=== PATIENT | male | born 1940 | race Caucasian/White ===

== ENCOUNTER 2016-08-10 08:00 | Inpatient (IN) | payer OTHER ==
[~2016-08-10] VITALS: Ht 177.8 cm; Wt 81.6 kg
--- NOTE | ~2016-08-10 | EKG ---
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 : 1940 Requested By: Hemanth Olivera Order Number: [id number] MD: Ras Sanchez Measurements Intervals [place] Rate: 148 P: MN: QRS: 64 QRSD: 86 T: -59 QT: 284 QTc: 446 Interpretive Statements Atrial fibrillation with rapid V-rate Nonspecific T abnormalities, diffuse leads Compared to ECG 08/11/2016 16:46:12 atrial fibrillation has replaced sinus rhythm Electronically Signed On 08-14-2016 8:01:24 CDT by Ras Sanchez [email or web address] <ELECTRONICALLY SIGNED> By: Ras Sanchez MD, [facility] 08/14/16 0801 0242 1 Ras Sanchez MD, [facility] /EPI
--- NOTE | ~2016-08-10 | EKG ---
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 : 1940 Requested By: Silver Cheney Order Number: [id number] MD: Ras Sanchez Measurements Intervals [place] Rate: 77 P: 75 [place]: 168 QRS: 51 QRSD: 116 T: 70 QT: 413 QTc: 468 Interpretive Statements Sinus rhythm Nonspecific intraventricular conduction delay Diffuse ST elevation, consider pericarditis Compared to ECG 08/14/2016 02:42:45 Sinus rhythm is now present minimal diffuse ST elevation is slightly more prominent Electronically Signed On 08-16-2016 13:56:46 CDT by Ras Sanchez [email or web address] <ELECTRONICALLY SIGNED> By: Ras Sanchez MD, [facility] 08/16/16 1356 0721 0721 Ras Sanchez MD, [facility] /EPI
--- NOTE | ~2016-08-10 | EKG ---
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
--- NOTE | ~2016-08-10 | O ---
[facility] [place] [address] OPERATIVE REPORT Name: QUINNMAE Dani Room #: 207-P [facility] IN M.R.#: [id number] Admission: 08/10/16 Attend Phys: Babak Golden MD Discharge: Date of : 44 Report #: [id number] THIS REPORT FOR: //name// CC: [facility] physician/PCP Saul Golden DATE OF SERVICE: 08/11/2016 PREOPERATIVE DIAGNOSIS: Coronary artery disease. POSTOPERATIVE DIAGNOSIS: Coronary artery disease. OPERATION: Coronary artery bypass x 4 including left internal mammary artery to left anterior descending artery, saphenous vein to ramus and marginal arteries and saphenous vein to posterior descending branch of the right coronary and endoscopic harvest, left greater saphenous vein. SURGEON: Saul Linares M.D. CERTIFIED ADAPTIVE PHYSICAL EDUCATOR: Shravan. ANESTHESIA: General. INDICATIONS: The patient is a 76-year-old seen for Dr. Olivera. The patient presents with unstable angina. Catheterization demonstrates 80-90% LAD and circumflex stenoses and total occlusion of the right coronary. The patient has a history of stent placement in the circumflex marginal in the past. The patient has good ventricular function. He is a longtime smoker. FINDINGS AND TECHNIQUE: After general anesthesia was established, saphenous vein was harvested using an endoscopic approach and prepared for use as a conduit. Exposure was obtained through median sternotomy. Left internal mammary artery was harvested. Pericardial well was made. Cannulation sutures were placed in the ascending aorta. Heparin was given. Aorta was cannulated. Right atrium was cannulated. Cardioplegia needle was positioned in the aortic root. Retrograde cardioplegic catheter was placed in the coronary sinus. Cardiopulmonary bypass was established. The aorta was cross clamped, antegrade then retrograde cardioplegia were given. Ice was poured in the pericardial well. The heart was stopped. During electromechanical arrest, the distal anastomoses were performed and end-to-side anastomosis was made between vein and the large marginal artery. This was an intramyocardial vessel that measured 1.7 mm. Cold cardioplegia was [facility] [address] [place] [address] OPERATIVE REPORT Name: MAE BALL Room #: 207-P [facility] IN .R.#: [id number] Admission: 08/10/16 Attend Phys: Babak Golden MD Discharge: Date of : 44 Report #: [id number]. Same segment of vein was sewn in end-to-side fashion to the ramus intermedius. This was a 1.4 mm vessel. This did not appear to have much disease radiographically, but there was thick atheroma palpable and this was an important vessel and I thought it would be best if we bypassed it. Cold cardioplegia was given. A separate segment of vein was sewn in end-to-side fashion to the posterior descending artery. This was a 1.3 mm vessel. Cold cardioplegia was given. Left internal mammary artery was sewn in end-to-side fashion to the left anterior descending artery. Patency of this vessel was checked with the temperature technique. Cold cardioplegia was given. Two proximal anastomoses were performed. When these were complete, warm retrograde cardioplegia was given followed by warm continuous blood to the coronary sinus. When this infusion was complete, the crossclamp was removed, de-airing maneuvers were performed. The anastomoses were inspected and found to be satisfactory. As the patient warmed, nice cardiac activity resumed, chest tubes and pacing wires were placed, a marker was placed around the proximal anastomoses. When the patient was warmed, he was weaned from cardiopulmonary bypass. Venous cannula was removed. Protamine was given, the aortic cannula was removed. Flows were measured in the bypass grafts. Flow in the graft to the left side was 45 mL per minute. Flow in the graft to the right side was 38 mL per minute. A good Doppler signal was audible in the internal mammary artery. When hemostasis was satisfactory, chest was irrigated with antibiotic solution and closed in the usual fashion. The patient was taken to the Intensive Care Unit in good condition having tolerated the procedure well. All counts reported as correct. <ELECTRONICALLY SIGNED> By: Saul Linares MD 08/14/16 0946 0801 1249 Saul Linares MD /nt
--- NOTE | ~2016-08-10 | 2DMMODE ---
[facility] [place] [address] [place] [address] 2 D/M-MODE ECHOCARDIOGRAM Name: MAE BALL Room #: 217-P [facility] IN ..#: [id number] Admission: 08/10/16 Attend Phys: Babak Golden MD Discharge: Date of : 44 Date of Service: 08/10/16 1443 Report #: [id number] THIS REPORT FOR: //name// APPROVED REPORT Study performed: 08/10/2016 13:57:28 EXAM: Comprehensive 2D, Doppler, and color-flow Echocardiogram Patient Location: Room #: [facility] Blood Pressure: 156/79 mmHg HR: 50 bpm Other Information Study Quality: Adequate/Technically difficult due to lung artifact. Indications CAD. Pre-Op CABG. Hx: DE, stent, HTN 2D Dimensions RVDd: 39.03 mm LVEF(%): 53.84 (>50%) IVSd: 11.62 (7-11mm) LVOT Diam: 24.59 (18-24mm) LVDd: 55.00 mm PWd: 9.83 (7-11mm) LVDs: 39.53 (25-40mm) Aortic Root: 37.76 mm Hartley's LVEF: 53.84 % Volumes Left Atrial Volume (Systole) Single Plane 4CH: 38.54 mL Single Plane 2CH: 62.83 mL LA ESV Index: 28.00 mL/m2 Aortic Valve AoV Peak Noe.: 1.28 m/s AO Peak Gr.: 6.59 mmHg LVOT Max P.48 mmHg LVOT Max V: 0.93 m/s RUBEN Vmax: 3.45 cm2 Mitral Valve E/A Ratio: 0.8 [facility] [place] [place] [address] 2 D/M-MODE ECHOCARDIOGRAM Name: QUINNMAE Dani Room #: 217-P [facility] IN [facility]#: [id number] Admission: 08/10/16 Attend Phys: Babak Golden MD Discharge: Date of : 44 Date of Service: 08/10/16 1443 Report #: [id number] MV Decel. Time: 254.92 ms MV E Max Noe.: 0.74 m/s MV A Noe.: 0.89 m/s MV PHT: 73.93 ms IVRT: 73.82 ms Pulmonary Valve PV Peak Noe.: 0.73 m/s PV Peak Gr.: 2.14 mmHg Tricuspid Valve RVSP: 5.00 mmHg Left Ventricle The left ventricle is normal size. There is mild hypokinesis in the basal inferolateral wall. There is normal left ventricular wall thickness. Left ventricular systolic function is normal. LVEF is 50-55%. Grade I - abnormal relaxation pattern. Right Ventricle Right ventricle is not well visualized. Atria The left atrium size is normal. The right atrium size is normal. Aortic Valve The Aortic valve is sclerotic. Mild aortic regurgitation. There is no aortic valvular stenosis. Mitral Valve The mitral valve is normal in structure. Mild mitral regurgitation. No evidence of mitral valve stenosis. Tricuspid Valve The tricuspid valve is normal in structure. There is no tricuspid valve regurgitation noted. Pulmonic Valve Pulmonic valve is not well visualized. Trace pulmonic regurgitation. Great Vessels The aortic root is normal in size. Ascending aorta is not well visualized. IVC is normal in size and collapses >50% with inspiration. [facility] [place] [address] [place] [address] 2 D/M-MODE ECHOCARDIOGRAM Name: QUINNMAE Dani Room #: 217-P [facility] IN .R.#: [id number] Admission: 08/10/16 Attend Phys: Babak Golden MD Discharge: Date of : 44 Date of Service: 08/10/161442 Report #: [id number] Pericardium There is no pericardial effusion. <Conclusion> The left ventricle is normal size. Left ventricular systolic function is normal. There is mild hypokinesis in the basal inferolateral wall. The left atrium size is normal. The right atrium size is normal. The Aortic valve is sclerotic. Mild mitral regurgitation. There is no pericardial effusion. <ELECTRONICALLY SIGNED> By: Hemanth Olivera MD 08/10/16 1443 42 144 Hemanth Olivera MD /INF
--- NOTE | ~2016-08-10 | CATHLAB ---
[facility] [address] [place] [address] INVASIVE PROCEDURE REPORT Name: MAE BALL Room #: 217-P [facility] IN [facility]#: [id number] Admission: 08/10/16 Attend Phys: Babak Golden MD Discharge: Date of : 44 Date of Service: 08/10/16 1309 Report #: [id number] THIS REPORT FOR: //name// CC: [facility] physician/PCP Babak Golden DATE OF SERVICE: 08/10/2016 INDICATION: Unstable angina/acute coronary syndrome. Full risks, benefits and alternatives of cardiac catheterization were explained to the patient. All questions were answered. Informed consent was obtained. The right groin area was prepped and draped in a sterile manner. Lidocaine was given subcutaneously. A 4-Icelandic sheath was inserted into the right femoral artery via modified Seldinger technique. CORONARY ANATOMY: The left main artery is a large caliber vessel, with mild disease proximally. The LAD has a severe occlusion proximally, at least 80%. The left circumflex artery has a stent in the proximal segment with a severe restenotic lesion, at least 90% within the stent. The RCA is a dominant vessel with a 100% occlusion proximally. The distal branches are filled via collateral circulation from the left coronary artery A left ventriculogram was performed revealing normal LV systolic function, ejection fraction of 60%. The LVEDP is approximately 25 mmHg. There is no gradient across the outflow tract. IMPRESSION: 1. Severe 3-vessel disease. 2. Normal LV systolic function. 3. Recommend surgical consultation. <ELECTRONICALLY SIGNED> By: Hemanth Olivera MD 08/11/16 0807 1309 2123 Hemanth Olivera MD /nt
--- NOTE | ~2016-08-10 | EKG ---
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 : 1940 Requested By: Silver Cheney Order Number: [id number] MD: Ras Sanchez Measurements Intervals [place] Rate: 74 P: 60 [place]: 202 QRS: 68 QRSD: 98 T: 73 QT: 412 QTc: 457 Interpretive Statements Sinus rhythm Borderline T abnormalities, lateral leads Compared to ECG 08/10/2016 08:00:28 ST and T wave abnormality is less prominent Electronically Signed On 08-12-2016 7:45:08 CDT by Ras Sanchez [email or web address] <ELECTRONICALLY SIGNED> By: Ras Sanchez MD, [facility] 08/12/16 0745 45 45 Ras Sanchez MD, [facility] /EPI
--- NOTE | ~2016-08-10 | HC ---
[facility] [place] [address] CONSULTATION Name: MAE BALL Room #: 207-P [facility] IN ..#: [id number] Admission: 08/10/16 Attend Phys: Babak Golden MD Discharge: Date of : 44 Report #: [id number] THIS REPORT FOR: //name// CC: [facility] physician/PCP Babak Golden DATE OF SERVICE: 08/10/2016 We were asked to see the patient by Dr. Olivera. HISTORY OF PRESENT ILLNESS: The patient is a 76-year-old with unstable angina. The patient presented to the ER this morning with chest pain after trying to move a fence in his backyard. The patient noted sharp epigastric pain with radiation to the left arm. Pain was severe during the activity, but subsided when he stopped. The patient said his pain was similar to that encounter 15 years ago when he had coronary disease and required stent placement. The patient has not seen a physician in recent years. We note that cardiac catheterization today showed severe 3-vessel disease with at least 80% LAD, 80% circumflex (in-stent stenosis) and total right coronary occlusions. Left ventricular function is satisfactory. PAST MEDICAL HISTORY: The patient denies hypertension, diabetes mellitus. He claims to take no medications at home and denies having allergies. SOCIAL HISTORY: The patient is a dual [place] and [place] citizen. Former cigarette smoker, but continues to smoke 2 cigars a day. FAMILY HISTORY: No history of precocious coronary disease. REVIEW OF SYSTEMS: CONSTITUTIONAL: Negative for change in weight, fever, sweats. EYES: Negative for eye pain, visual change, blurry vision. HEENT: Negative for nasal congestion, sore throat. Hearing problem is representing a change. RESPIRATORY: Negative for cough, sputum production, shortness of breath. CARDIAC: As mentioned chest pain, chest pain with exertion, no palpitations. GASTROINTESTINAL: Negative for nausea, vomiting, diarrhea, GI blood loss. GENITOURINARY: Negative for urgency, frequency, hematuria. MUSCULOSKELETAL: As mentioned, left arm pain, numbness at the time of angina but no other back pain, muscle pain, joint pain. SKIN: Negative for rash or infection. NEUROLOGIC: Had some numbness in the left arm associated with the symptoms, otherwise negative for motor or sensory dysfunction. PSYCHIATRIC: Negative for anxiety and depression. ENDOCRINE: Negative for excessive sweating, , intolerance to cold or heat. [address] [address] CONSULTATION Name: QUINNMAE Dani Room #: 207-P [facility] IN ..#: [id number] Admission: 08/10/16 Attend Phys: Babak Golden MD Discharge: Date of : 44 Report #: [id number] HEMATOLOGIC: Negative for anemia, easy bruisability. PHYSICAL EXAMINATION: VITAL SIGNS: Heart rate 56, blood pressure 164/59, respiratory rate 19, O2 sat 97. HEENT: No scleral icterus, no arcus. Pupils are round, equal, reactive to light. Gaze conjugate, normocephalic. No oral or nasal injection or discharge. NECK: Left cervical bruit. No masses, no tenderness. CHEST: Clear to auscultation. No adventitious sounds. HEART: Rhythm regular, faint systolic murmur. Heart tones are distant, however. ABDOMEN: Soft, no mass, no tenderness. EXTREMITIES: No clubbing, cyanosis or edema. No obvious saphenous vein problems, 2+ dorsalis pedis and posterior tibial pulses. NEUROLOGIC: No obvious motor or sensory dysfunction. MUSCULOSKELETAL: No obvious bone or joint dyssymmetry or deformity. PSYCHIATRIC: Shows insight into problems and mood is neither artificially elevated or depressed, oriented x 3. IMPRESSION: Important 3-vessel coronary artery disease with preserved ventricular function. I have reviewed the risks and details of coronary artery bypass. Risks and details were discussed. These include but are not limited to bleeding, infection, anesthesia risks, heart problems, lung problems, stroke and options and alternatives were reviewed. The patient understands all of this and he wishes to proceed. We will try to arrange surgery for tomorrow morning. Thank you for the consult. <ELECTRONICALLY SIGNED> By: Saul Linares MD 08/14/16 0946 1400 1521 Saul Linares MD /nt
[2016-08-10 08:04] VITALS: BP 171/88
[2016-08-10 08:18] LABS: ABSOLUTE NEUTROPHILS 5.6 thou/uL (1.4-8.2); BASOPHILS 1.3 % (0.0-2.0); EOSINOPHILS 0.8 % (0.0-3.0); HEMATOCRIT 49.8 % (42.0-52.0); HEMOGLOBIN 17.3 gm/dL (14.0-18.0); LYMPHOCYTES 21.3 % (24.0-44.0); MANUAL DIFF NO; MCH 34.3 pg (26.0-34.0); MCHC 34.8 g/dL (28.0-37.0); MCV 98.5 fL (80.0-100.0); MONOCYTES 6.2 % (1.0-8.0); PLATELET COUNT 194 thou/uL (150-400); POLYS 70.4 % (36.0-66.0); RBC 5.05 mil/uL (4.50-6.00); RDW 14.8 % (10.5-14.5); WBC 7.9 thou/uL (4.0-11.0)
[2016-08-10 08:29] LABS: ANION GAP 8 mmol/L (7-16); BUN 17 mg/dL (7-18); CHLORIDE 102 mmol/L (98-107); CO2 28 mmol/L (21-32); CREATININE 1.3 mg/dL (0.7-1.3); GLUCOSE 109 mg/dL (74-106); POTASSIUM 3.7 mmol/L (3.5-5.1); SODIUM 138 mmol/L (136-145)
[2016-08-10 08:37] LABS: TROPONIN-I < 0.04 ng/mL (<0.04-0.07)
[2016-08-10 10:32] VITALS: BP 117/51
[2016-08-10 10:50] VITALS: BP 156/79
[2016-08-10 15:45] VITALS: BP 135/61
[2016-08-10 16:55] LABS: APTT 27.8 Seconds (24.5-32.8); PROTIME 10.4 Seconds (9.3-11.4)
[2016-08-10 18:02] LABS: URINE BILIRUBIN NEGATIVE (Negative); URINE BLOOD TRACE (Negative); URINE COLOR YELLOW; URINE GLUCOSE-RANDOM* NEGATIVE (Negative); URINE KETONES NEGATIVE (Negative); URINE LEUKOCYTES-REFLEX NEGATIVE (Negative); URINE PROTEIN (DIPSTICK) NEGATIVE (Negative); URINE UROBILINOGEN 0.2 E.U./dl (0.2-1.0)
[2016-08-10 22:37] VITALS: BP 149/73
[2016-08-10 22:38] VITALS: BP 136/50
[2016-08-11] VITALS (12 sets, daily range): BP systolic 88–159; BP diastolic 50–66
[2016-08-11 03:15] LABS: HEMATOCRIT 45.4 % (42.0-52.0); HEMOGLOBIN 15.9 gm/dL (14.0-18.0); MCV 96.9 fL (80.0-100.0); RBC 4.68 mil/uL (4.50-6.00); RDW 14.5 % (10.5-14.5); WBC 6.6 thou/uL (4.0-11.0)
[2016-08-11 03:35] LABS: CHOLESTEROL 279 mg/dL (<200); HDL CHOLESTEROL 30 mg/dL (>40); LDL CHOLESTEROL 223 mg/dL (<100); TC:HDL 9.3 Ratio (Not establshd); TRIGLYCERIDE 133 mg/dL (<150); VLDL 27 mg/dL (<40)
[2016-08-11 03:37] LABS: SERUM ASSESSMENT Clear
[2016-08-11 03:39] LABS: ALBUMIN 3.2 g/dL (3.4-5.0); CALCIUM 9.2 mg/dL (8.5-10.1); CREATININE 1.3 mg/dL (0.7-1.3); POTASSIUM 3.9 mmol/L (3.5-5.1); TOTAL BILIRUBIN 0.4 mg/dL (<0.1-1.0); TOTAL PROTEIN 6.9 g/dL (6.4-8.2)
[2016-08-11 06:08] LABS: GLYCOHEMOGLOBIN (HGB A1C) 5.2 % (4.8-5.6)
[2016-08-11 15:46] LABS: POC BE -1 mmol/L (-2.0 to +3.0); POC CA IONIZED 4.9 mg/dL (4.5-5.3); POC FiO2 100 %; POC GLUCOSE 120 mg/dL (70-99); POC HCO3 24.8 mmol/L (22.0-26.0); POC HEMOGLOBIN 13.9 g/dL (14.0-18.0); POC POTASSIUM 4.2 mmol/L (3.5-5.1); POC SODIUM 135 mmol/L (136-145); POC pCO2 43.5 mmHg (35.0-45.0); POC pH 7.365 (7.360-7.450)
[2016-08-11 15:51] LABS: POC BE 0 mmol/L (-2.0 to +3.0); POC CA IONIZED 4.6 mg/dL (4.5-5.3); POC FiO2 90 %; POC GLUCOSE 133 mg/dL (70-99); POC HCO3 25.2 mmol/L (22.0-26.0); POC HEMOGLOBIN 11.6 g/dL (14.0-18.0); POC POTASSIUM 6.1 mmol/L (3.5-5.1); POC SODIUM 133 mmol/L (136-145); POC pCO2 45.3 mmHg (35.0-45.0); POC pH 7.354 (7.360-7.450)
[2016-08-11 15:51] LABS: POC BE -4 mmol/L (-2.0 to +3.0); POC CA IONIZED 4.5 mg/dL (4.5-5.3); POC FiO2 100 %; POC GLUCOSE 116 mg/dL (70-99); POC HCO3 22.4 mmol/L (22.0-26.0); POC HEMOGLOBIN 11.2 g/dL (14.0-18.0); POC POTASSIUM 4.7 mmol/L (3.5-5.1); POC SODIUM 131 mmol/L (136-145); POC pCO2 45.4 mmHg (35.0-45.0); POC pH 7.302 (7.360-7.450)
[2016-08-11 15:51] LABS: POC BE -4 mmol/L (-2.0 to +3.0); POC CA IONIZED 5.7 mg/dL (4.5-5.3); POC FiO2 100 %; POC GLUCOSE 135 mg/dL (70-99); POC HCO3 21.8 mmol/L (22.0-26.0); POC HEMOGLOBIN 10.9 g/dL (14.0-18.0); POC POTASSIUM 5.1 mmol/L (3.5-5.1); POC SODIUM 133 mmol/L (136-145); POC pCO2 40.2 mmHg (35.0-45.0); POC pH 7.342 (7.360-7.450)
[2016-08-11 15:51] LABS: POC BE 1 mmol/L (-2.0 to +3.0); POC FiO2 100 %; POC GLUCOSE 115 mg/dL (70-99); POC HCO3 24.8 mmol/L (22.0-26.0); POC POTASSIUM 4.1 mmol/L (3.5-5.1); POC SODIUM 135 mmol/L (136-145); POC pCO2 36.7 mmHg (35.0-45.0); POC pH 7.438 (7.360-7.450)
[2016-08-11 15:51] LABS: POC BE 0 mmol/L (-2.0 to +3.0); POC CA IONIZED 4.6 mg/dL (4.5-5.3); POC FiO2 100 %; POC GLUCOSE 145 mg/dL (70-99); POC HCO3 26.5 mmol/L (22.0-26.0); POC HEMOGLOBIN 11.2 g/dL (14.0-18.0); POC POTASSIUM 5.9 mmol/L (3.5-5.1); POC SODIUM 132 mmol/L (136-145); POC pH 7.307 (7.360-7.450)
[2016-08-11 15:51] LABS: POC BE 0 mmol/L (-2.0 to +3.0); POC CA IONIZED 5.3 mg/dL (4.5-5.3); POC FiO2 100 %; POC GLUCOSE 118 mg/dL (70-99); POC HCO3 26.1 mmol/L (22.0-26.0); POC POTASSIUM 4.3 mmol/L (3.5-5.1); POC SODIUM 137 mmol/L (136-145); POC pCO2 50.9 mmHg (35.0-45.0); POC pH 7.317 (7.360-7.450)
[2016-08-11 15:51] LABS: POC BE -1 mmol/L (-2.0 to +3.0); POC CA IONIZED 4.3 mg/dL (4.5-5.3); POC FiO2 100 %; POC GLUCOSE 118 mg/dL (70-99); POC HCO3 24.6 mmol/L (22.0-26.0); POC HEMOGLOBIN 11.2 g/dL (14.0-18.0); POC POTASSIUM 4.7 mmol/L (3.5-5.1); POC SODIUM 128 mmol/L (136-145); POC pH 7.327 (7.360-7.450)
[2016-08-11 15:51] LABS: POC BE 0 mmol/L (-2.0 to +3.0); POC CA IONIZED 4.6 mg/dL (4.5-5.3); POC FiO2 80 %; POC GLUCOSE 132 mg/dL (70-99); POC HEMOGLOBIN 11.2 g/dL (14.0-18.0); POC POTASSIUM 5.9 mmol/L (3.5-5.1); POC SODIUM 132 mmol/L (136-145); POC pCO2 44.1 mmHg (35.0-45.0); POC pH 7.361 (7.360-7.450)
[2016-08-11 16:23] LABS: HEMATOCRIT 41.3 % (42.0-52.0); HEMOGLOBIN 14.3 gm/dL (14.0-18.0); MCH 33.6 pg (26.0-34.0); MCHC 34.6 g/dL (28.0-37.0); MCV 97.1 fL (80.0-100.0); RBC 4.25 mil/uL (4.50-6.00); RDW 14.5 % (10.5-14.5); WBC 14.5 thou/uL (4.0-11.0)
[2016-08-11 16:29] LABS: ABG SAMPLE TYPE ARTERIAL; BE(vivo) -3.6 mmol/L (-2 to +3); HCO3 20.4 mmol/L (22.0-26.0); O2(CT) 20.9 mL/dL (15.0-23.0); PCO2 34.2 mmHg (35.0-45.0); PO2 187.6 mmHg (80.0-100.0); pH 7.394 (7.360-7.450); sO2 99.3 % (92.0-98.0); tCO2 21.5 mmol/L (24.0-30.0)
[2016-08-11 16:33] LABS: STICK SITE LINE
[2016-08-11 16:34] LABS: TIDAL VOLUME 600 ml
[2016-08-11 16:50] LABS: CALCIUM 8.8 mg/dL (8.5-10.1); CREATININE 1.2 mg/dL (0.7-1.3); POTASSIUM 4.6 mmol/L (3.5-5.1)
[2016-08-11 18:06] LABS: ABG SAMPLE TYPE ARTERIAL; BE(vivo) -3.7 mmol/L (-2 to +3); HCO3 20.8 mmol/L (22.0-26.0); LACTATE 1.72 mmol/L (0.5-2.0); O2(CT) 20.7 mL/dL (15.0-23.0); O2Hb 97.4 % (92.0-98.0); PCO2 36.2 mmHg (35.0-45.0); PO2 128.7 mmHg (80.0-100.0); pH 7.377 (7.360-7.450); sO2 98.5 % (92.0-98.0); tCO2 21.9 mmol/L (24.0-30.0)
[2016-08-11 18:07] LABS: STICK SITE LINE; TIDAL VOLUME 600 ml
[2016-08-11 18:40] LABS: ABG SAMPLE TYPE ARTERIAL; BE(vivo) -3.7 mmol/L (-2 to +3); HCO3 21.2 mmol/L (22.0-26.0); LACTATE 1.83 mmol/L (0.5-2.0); O2(CT) 20.8 mL/dL (15.0-23.0); PCO2 37.9 mmHg (35.0-45.0); PO2 159.1 mmHg (80.0-100.0); pH 7.365 (7.360-7.450); tCO2 22.3 mmol/L (24.0-30.0)
[2016-08-11 18:44] LABS: Pressure Support 8 cm H20; STICK SITE LINE
[2016-08-11 20:31] LABS: HEMATOCRIT 39.8 % (42.0-52.0); HEMOGLOBIN 13.5 gm/dL (14.0-18.0); MCH 33.3 pg (26.0-34.0); MCV 98.2 fL (80.0-100.0); RBC 4.05 mil/uL (4.50-6.00); RDW 14.5 % (10.5-14.5); WBC 18.6 thou/uL (4.0-11.0)
[2016-08-11 20:38] LABS: CALCIUM 8.9 mg/dL (8.5-10.1); CREATININE 1.4 mg/dL (0.7-1.3); POTASSIUM 4.1 mmol/L (3.5-5.1)
[2016-08-12] VITALS (46 sets, daily range): BP systolic 83–132; BP diastolic 43–93
[2016-08-12 04:20] LABS: MCH 33.8 pg (26.0-34.0); MCHC 34.7 g/dL (28.0-37.0); MCV 97.3 fL (80.0-100.0); RBC 3.29 mil/uL (4.50-6.00); RDW 14.4 % (10.5-14.5); WBC 11.4 thou/uL (4.0-11.0)
[2016-08-12 04:22] LABS: HEMOGLOBIN 11.1 gm/dL (14.0-18.0)
[2016-08-12 04:24] LABS: CALCIUM 8.5 mg/dL (8.5-10.1); CREATININE 1.4 mg/dL (0.7-1.3); POTASSIUM 3.9 mmol/L (3.5-5.1)
[2016-08-13] VITALS (27 sets, daily range): BP systolic 113–152; BP diastolic 53–74
[2016-08-13 05:22] LABS: HEMATOCRIT 28.9 % (42.0-52.0); HEMOGLOBIN 9.9 gm/dL (14.0-18.0); MCH 33.4 pg (26.0-34.0); MCHC 34.4 g/dL (28.0-37.0); MCV 97.2 fL (80.0-100.0); RBC 2.97 mil/uL (4.50-6.00); RDW 14.4 % (10.5-14.5)
[2016-08-13 05:32] LABS: CALCIUM 8.9 mg/dL (8.5-10.1); CREATININE 1.4 mg/dL (0.7-1.3); POTASSIUM 3.7 mmol/L (3.5-5.1)
[2016-08-14 02:58] LABS: HEMATOCRIT 28.6 % (42.0-52.0); HEMOGLOBIN 9.9 gm/dL (14.0-18.0); MCH 33.8 pg (26.0-34.0); MCHC 34.8 g/dL (28.0-37.0); MCV 97.2 fL (80.0-100.0); RBC 2.94 mil/uL (4.50-6.00); RDW 14.5 % (10.5-14.5); WBC 10.6 thou/uL (4.0-11.0)
[2016-08-14 03:13] LABS: CALCIUM 9.3 mg/dL (8.5-10.1); CREATININE 1.3 mg/dL (0.7-1.3); POTASSIUM 4.2 mmol/L (3.5-5.1)
[2016-08-14 04:56] VITALS: BP 101/55
[2016-08-14 07:45] VITALS: BP 102/52
[2016-08-14 11:30] VITALS: BP 114/61
[2016-08-14 16:25] VITALS: BP 110/60
[2016-08-14 19:33] VITALS: BP 108/62
[2016-08-15 03:57] VITALS: BP 143/69
[2016-08-15 04:17] LABS: HEMATOCRIT 29.6 % (42.0-52.0); HEMOGLOBIN 10.1 gm/dL (14.0-18.0); MCH 33.9 pg (26.0-34.0); MCHC 34.2 g/dL (28.0-37.0); RBC 2.99 mil/uL (4.50-6.00); RDW 14.4 % (10.5-14.5); WBC 9.6 thou/uL (4.0-11.0)
[2016-08-15 04:30] LABS: CALCIUM 9.7 mg/dL (8.5-10.1); CREATININE 1.3 mg/dL (0.7-1.3); POTASSIUM 3.9 mmol/L (3.5-5.1)
[2016-08-15 07:50] VITALS: BP 126/56
[2016-08-15 11:25] VITALS: BP 133/66
[2016-08-15 15:20] VITALS: BP 124/60
[2016-08-15 19:54] VITALS: BP 120/67
[2016-08-16 04:35] VITALS: BP 142/72
[2016-08-16 08:10] VITALS: BP 115/53
[2016-08-16 11:45] VITALS: BP 105/40
[2016-08-16] MEDS ORDERED: PACERONE 200 M200 M1 PO (11:53)
[2016-08-16] MEDS ORDERED: ATORVASTATIN CA40 MG PO (11:53)
[2016-08-16] MEDS ORDERED: LOPRESSOR25 PO (11:53)
[2016-08-16] MEDS ORDERED: LISINOPRIL10 MG PO (11:54)
[2016-08-16] MEDS ORDERED: COLACE 100 MG100 MG PO (11:54)
[2016-08-16] MEDS ORDERED: ASPIR 8181 MG PO (11:54)
[2016-08-16 12:18] VITALS: BP 115/53
[2016-08-16 14:33] VITALS: BP 115/53
== END 2016-08-16 13:26 | disposition home or self-care (01) | DRG 234 ==
LOC: ER 08:00 → 2N 08:55 → EROBS 08:55 → 4S 10:45 → 2N 13:59 → TBA 08-11 15:16 → ICU 08-11 16:49 → 2N 08-13 14:53
PROVIDERS: Emergency Medicine; Hospitalist; Internal Medicine Cardiovascular Disease; Nurse Practitioner; Physician Assistant; Surgery Vascular Surgery
PROC: 4A023N7 Measurement of Cardiac Sampling and Pressure, Left Heart, Percutaneous Approach (ICD-10-PCS; 2016-08-10)
PROC: B2111ZZ Fluoroscopy of Multiple Coronary Arteries using Low Osmolar Contrast (ICD-10-PCS; 2016-08-10)
PROC: B2151ZZ Fluoroscopy of Left Heart using Low Osmolar Contrast (ICD-10-PCS; 2016-08-10)
PROC: 02100Z9 Bypass Coronary Artery, One Artery from Left Internal Mammary, Open Approach (ICD-10-PCS; principal; 2016-08-11)
PROC: 5A1221Z Performance of Cardiac Output, Continuous (ICD-10-PCS; 2016-08-11)
PROC: 021209W Bypass Coronary Artery, Three Arteries from Aorta with Autologous Venous Tissue, Open Approach (ICD-10-PCS; 2016-08-11)
PROC: 06BQ4ZZ Excision of Left Saphenous Vein, Percutaneous Endoscopic Approach (ICD-10-PCS; 2016-08-11)
DX: I25.110 Atherosclerotic heart disease of native coronary artery with unstable angina pectoris (principal); E44.0 Moderate protein-calorie malnutrition; D62 Acute posthemorrhagic anemia; T82.855A Stenosis of coronary artery stent, initial encounter; I10 Essential (primary) hypertension; I48.0 Paroxysmal atrial fibrillation; F17.210 Nicotine dependence, cigarettes, uncomplicated; K21.9 Gastro-esophageal reflux disease without esophagitis; E78.5 Hyperlipidemia, unspecified; Z82.49 Family history of ischemic heart disease and other diseases of the circulatory system; Z80.9 Family history of malignant neoplasm, unspecified; Z71.6 Tobacco abuse counseling; I25.2 Old myocardial infarction; Z98.61 Coronary angioplasty status; Z98.42 Cataract extraction status, left eye; Z98.41 Cataract extraction status, right eye; Z68.25 Body mass index [BMI] 25.0-25.9, adult; Y83.8 Other surgical procedures as the cause of abnormal reaction of the patient, or of later complication, without mention of misadventure at the time of the procedure; Y92.89 Other specified places as the place of occurrence of the external cause
CPT/HCPCS: 10078; 10081; 47000; 47001; 47002; 47297; 48888; 50249; 50409; 50456; 50498; 50668; 51301; 52131; 52259; 53327; 53358; 54118; 56524; 56525; 56526; 56527; 56528; 56531; 56534; 56639; 56660; 56898; 57093; 62110; 62950; 64029; 65002; 65003; 65020; 65043; 65090; 65120

== ENCOUNTER → 2019-08-09 | Outpatient (CLI) | payer OTHER ==
[~2019-08-09] MED LIST: ASPIR 8181 MG PO; ATORVASTATIN CA40 MG PO; COLACE 100 MG100 MG PO; LISINOPRIL10 MG PO; LOPRESSOR25 PO; PACERONE 200 M200 M1 PO
== END ==
LOC: SJCVCIMAG 08:03
DX: I44.0 Atrioventricular block, first degree (principal); R00.0 Tachycardia, unspecified; I25.810 Atherosclerosis of coronary artery bypass graft(s) without angina pectoris; E78.00 Pure hypercholesterolemia, unspecified; K21.9 Gastro-esophageal reflux disease without esophagitis; R55 Syncope and collapse; I10 Essential (primary) hypertension; E78.5 Hyperlipidemia, unspecified; I25.2 Old myocardial infarction; Z95.1 Presence of aortocoronary bypass graft; Z87.891 Personal history of nicotine dependence; Z79.82 Long term (current) use of aspirin; Z79.899 Other long term (current) drug therapy